=== PATIENT | female | born 1965 | race Caucasian/White ===

== ENCOUNTER → 2017-06-02 18:32 | Emergency (ER) | payer MEDICAID | END | disposition home or self-care (01) | LOC: D.ER 18:32 | DX: B02.9 Zoster without complications (principal); I25.10 Atherosclerotic heart disease of native coronary artery without angina pectoris ==

== ENCOUNTER 2018-08-16 18:11 | Emergency (ER) | payer SELFPAY ==
[~2018-08-16] VITALS: Ht 154.9 cm; Wt 72.7 kg
[2018-08-16 18:22] VITALS: Ht 154.9 cm; Wt 72.7 kg
[2018-08-16] MEDS ORDERED: KLONOPIN1 MG PO (18:23)
[2018-08-16 19:06] LABS: BASOPHILS 0.2 % (0-2); EOSINOPHILS 1.5 % (0-7); HEMATOCRIT 41.8 % (36.0-48.0); HEMOGLOBIN 14.3 g/dL (12-16); IMMATURE GRANULOCYTES 0.3 % (0-5); MCH 32.6 pg (26.0-34.0); MCHC 34.2 g/dL (31.0-37.0); MCV 95.4 fL (80.0-100.0); MEAN PLATELET VOLUME 10.2 fL (7.4-10.4); MONOCYTES 5.5 % (2-11); NEUTROPHILS 71.5 % (40-80); PLATELET COUNT 224 10x3/uL (130-400); RBC 4.38 10x6/uL (4.00-5.40); RDW 12.7 % (11.5-14.5); WBC 11.1 10x3/uL (4.8-10.8)
[2018-08-16 19:20] LABS: ALBUMIN 3.9 g/dL (3.4-5.0); ALKALINE PHOSPHATASE 116 U/L (46-116); ALT (SGPT) 140 U/L (10-68); BILIRUBIN - TOTAL 0.63 mg/dL (0.2-1.3); CALC OSMOLALITY 284 mosm/kg (275-300); CALCIUM 9.1 mg/dL (8.5-10.1); CARBON DIOXIDE 28.1 mmol/L (21.0-32.0); CHLORIDE - SERUM 106 mmol/L (98-107); CREATININE - SERUM 0.7 mg/dL (0.6-1.3); GLUCOSE 108 mg/dL (74-106); MAGNESIUM - SERUM 2.2 mg/dL (1.8-2.4); POTASSIUM - SERUM 3.5 mmol/L (3.5-5.1); SODIUM 142 mmol/L (136-145); UREA NITROGEN 15 mg/dL (7-18); eGFR NON AFRICAN AMERICAN > 90 mL/min (90-120)
[2018-08-16 19:25] LABS: APPEARANCE CLEAR (CLEAR); BILIRUBIN NEGATIVE (NEGATIVE); COLOR YELLOW (YELLOW); GLUCOSE NEGATIVE (NEGATIVE); HCG URINE NEGATIVE (NEGATIVE); KETONE NEGATIVE (NEGATIVE); NITRITE NEGATIVE (NEGATIVE); PROTEIN NEGATIVE (NEGATIVE); UROBILINOGEN NORMAL (NORMAL)
[2018-08-16 19:37] LABS: UDS - AMPHET POSITIVE QUAL (NEGATIVE); UDS - BARB NEGATIVE QUAL (NEGATIVE); UDS - BENZO POSITIVE QUAL (NEGATIVE); UDS - COCAINE NEGATIVE QUAL (NEGATIVE); UDS - OPIATE NEGATIVE QUAL (NEGATIVE); UDS - PCP NEGATIVE QUAL (NEGATIVE); UDS - THC NEGATIVE QUAL (NEGATIVE)
[2018-08-17 00:53] VITALS: BP 170/88
== END 2018-08-17 01:04 ==
LOC: D.ER 18:11
PROVIDERS: Emergency Medicine
DX: T14.91XA Suicide attempt, initial encounter (principal); T42.6X2A Poisoning by other antiepileptic and sedative-hypnotic drugs, intentional self-harm, initial encounter; Y92.019 Unspecified place in single-family (private) house as the place of occurrence of the external cause; F17.200 Nicotine dependence, unspecified, uncomplicated

== ENCOUNTER 2019-05-07 17:36 | Emergency (ER) | payer MEDICAID ==
[~2019-05-07] VITALS: Ht 154.9 cm; Wt 65.0 kg
[~2019-05-07 17:36] MED LIST: KLONOPIN1 MG PO
[2019-05-07 17:39] VITALS: Ht 154.9 cm; Wt 65.0 kg
[2019-05-07 18:10] LABS: BASOPHILS 0.4 % (0-2); EOSINOPHILS 2.4 % (0-7); HEMATOCRIT 39.1 % (36.0-48.0); HEMOGLOBIN 13.6 g/dL (12-16); IMMATURE GRANULOCYTES 0.4 % (0-5); LYMPHOCYTES 31.2 % (15-50); MCH 32.7 pg (26.0-34.0); MCHC 34.8 g/dL (31.0-37.0); MEAN PLATELET VOLUME 10.2 fL (7.4-10.4); MONOCYTES 5.4 % (2-11); NEUTROPHILS 60.2 % (40-80); PLATELET COUNT 245 10x3/uL (130-400); RBC 4.16 10x6/uL (4.00-5.40); RDW 12.7 % (11.5-14.5); WBC 8.5 10x3/uL (4.8-10.8)
[2019-05-07 18:20] LABS: APPEARANCE CLEAR (CLEAR); BILIRUBIN NEGATIVE (NEGATIVE); COLOR YELLOW (YELLOW); GLUCOSE NEGATIVE (NEGATIVE); KETONE NEGATIVE (NEGATIVE); NITRITE NEGATIVE (NEGATIVE); PROTEIN NEGATIVE (NEGATIVE); SPECIFIC GRAVITY 1.025 (1.005-1.020); UROBILINOGEN NORMAL (NORMAL)
[2019-05-07 18:34] LABS: ALBUMIN 4.1 g/dL (3.4-5.0); ALKALINE PHOSPHATASE 136 U/L (46-116); ALT (SGPT) 99 U/L (10-68); BILIRUBIN - TOTAL 0.31 mg/dL (0.2-1.3); CALC OSMOLALITY 287 mosm/kg (275-300); CALCIUM 9.8 mg/dL (8.5-10.1); CARBON DIOXIDE 26.8 mmol/L (21.0-32.0); CHLORIDE - SERUM 106 mmol/L (98-107); CREATININE - SERUM 0.8 mg/dL (0.6-1.3); GLUCOSE 97 mg/dL (74-106); POTASSIUM - SERUM 3.9 mmol/L (3.5-5.1); PROTEIN - SERUM 7.4 g/dL (6.4-8.2); SODIUM 144 mmol/L (136-145); UREA NITROGEN 14 mg/dL (7-18); eGFR NON AFRICAN AMERICAN 79 mL/min (90-120)
[2019-05-07 18:37] LABS: AMYLASE - SERUM 52 U/L (25-115); LIPASE 217 U/L (73-393)
[2019-05-07 18:40] LABS: TROPONIN-I < 0.017 ng/mL (0.000-0.060)
[2019-05-07] MEDS ORDERED: PEPCID40 MG PO (20:34)
[2019-05-07] MEDS ORDERED: ONDANSETRON ODT8 MG PO (20:34)
[2019-05-07] MEDS ORDERED: VITAMIN D250000 UNIT PO (20:38)
[2019-05-07 21:10] VITALS: BP 141/72
== END 2019-05-07 21:10 | disposition home or self-care (01) ==
LOC: D.ER 17:36
PROVIDERS: Emergency Medicine
DX: R10.11 Right upper quadrant pain (principal); K21.9 Gastro-esophageal reflux disease without esophagitis; R11.2 Nausea with vomiting, unspecified; F17.200 Nicotine dependence, unspecified, uncomplicated

== ENCOUNTER → 2020-04-20 13:34 | Outpatient (CLI) | payer MEDICAID ==
[2019-05-07 17:39] VITALS: BMI 27.0
--- NOTE | ~2020-04-20 | EC ---
PATIENT:BRETT LOPEZ DATE OF SERVICE: 04/20/20 SEX: F MEDICAL RECORD: [id number] DATE OF : 63 [facility] AGE OF PATIENT: 54 ADMISSION DATE: 04/20/20 REFERRING PHYSICIAN: INTERPRETING PHYSICIAN: EVANGELINA HOOD MD ECHOCARDIOGRAM REPORT ECHO CHARGES 4 ECHO COMPLETE Date: 04/20/20 CLINICAL DIAGNOSIS: HEART MURMUR ECHOCARDIOGRAPHIC MEASUREMENTS (adult normal given) AC root (d.<3.7cm) 2.7 cm LV Septum d (<1.2 cm> 1.2 cm Valve Excursion 1.4 cm LV Septum (systole) 1.4 cm Left Atria (s.<4.0cm> 3.6 cm LVPW d(<1.2cm) 1.1 cm RV (d.<2.3cm) 4.2 cm LVPW (sytole) 1.4 cm LV diastole(<5.6CM) 3.8 cm MV E-F(>70mm/sec) cm LV systole 2.4 cm LVOT Diameter 1.5 cm MV exc.(>10mm) 0.60 cm Est.ejection fraction (50-75%) % DOPPLER: LVIT cm/sec A 91.0 cm/sec E 113.0 cm/sec LA cm/sec RVSP 15 mmHg LVOT 117 cm/sec AOP1/2T m/s Asc. Ao 146 cm/sec RVOT 91 cm/sec RA cm/sec PA 118 cm/sec AV Gradient Peak 8.54 mmHg AV Mean 4.61 mmHg AV Area 1.5 cm MV Gradient Peak 6.94 mmHg MV Mean 2.16 mmHg MV Area cm COMMENTS: Sow Manager: 2 BECCA PRESCOTT Game Producer: 3 Dr. King TAPE# pacs Pericardial Effusion N DATE OF SERVICE: Adequate 2D, color flow imaging, spectral Doppler, and M-Mode. No LVH. LV internal dimensions are normal. Wall motion is normal. EF is greater than or equal to 55%. Aortic valve is tricuspid. No evidence of stenosis by Doppler interrogation. Left atrium is normal. Mitral valve shows no prolapse. Trace MR. Right-sided chambers are grossly normal. Trace TR. TRANSINT:[id number] Voice Confirmation ID: [id number] DOCUMENT ID: [id number] ECHOCARDIOGRAM REPORT [id number] JESSICABRETT VILLEGAS GREGORY A MD CC: [id number] DICTATION DATE: 04/22/20 1536 HAND COLLATOR: 04/22/20 2246 DEP CLI 04/20/20 [place] [id number] [place] [id number]
[~2020-04-20 13:34] MED LIST changes: +ONDANSETRON ODT8 MG PO; +PEPCID40 MG PO; +VITAMIN D250000 UNIT PO
== END | disposition home or self-care (01) ==
LOC: D.HCCECHO 13:34
PROVIDERS: ATTEND Internal Medicine Interventional Cardiology
DX: R07.9 Chest pain, unspecified (principal); R01.1 Cardiac murmur, unspecified